=== PATIENT | female | born 1990 | race Caucasian/White ===

== ENCOUNTER → 2022-01-26 | Outpatient (CLI) | payer MEDICAID ==
--- NOTE | 2022-01-26 12:53 | Diagnostic Imaging Report ---
Indication: A prior history of left breast abscess at the 6:00 location which was subsequently drained. Sonographic interrogation of the left breast was performed. No discrete breast abscess is identified on today's study. 6:00 location is unremarkable. There does appear to be some slightly irregular hypoechogenicity with vascularity in the retroareolar left breast. This could represent inflammation but no fluid is identified. This does appear to be asymmetric when compared with the normal-appearing right breast retroareolar region. IMPRESSION: BI-RADS Category 3 No discrete breast abscess is identified. There is some irregular hypoechogenicity in the retroareolar left breast with some internal vascularity which could represent inflammatory tissue or phlegmon. Follow-up in 2-3 months is recommended to show clearing. ACR BI-RADS Category 3: Probably benign findings. Dictated by: Dictated on workstation # [id number]
== END ==
LOC: RAD 12:00
PROVIDERS: ATTEND Surgery
DX: N61.1 Abscess of the breast and nipple (principal)
CPT/HCPCS: 76641